=== PATIENT | male | born 1960 | race Caucasian/White ===

== ENCOUNTER 2021-03-26 16:23 | Inpatient (IN) | payer MEDICAID, SELFPAY ==
[~2021-03-26] VITALS: Ht 188 cm; Wt 200.5 kg
[2021-03-26 16:28] VITALS: BP_SYST 142
[2021-03-26 17:01] LABS: BASOPHILS # (AUTO) 0.1 K/uL (0.0-0.2); BASOPHILS % (AUTO) 0.6 % (0.0-2.0); EOSINOPHILS # (AUTO) 0.2 K/uL (0.0-0.4); EOSINOPHILS % (AUTO) 1.6 % (0.0-4.0); HEMATOCRIT 41.2 % (36-54); HEMOGLOBIN 13.6 g/dL (14.0-18.0); LYMPHOCYTES # (AUTO) 1.5 K/uL (1.0-5.5); LYMPHOCYTES % (AUTO) 13.5 % (20.5-51.5); MEAN CORPUSCULAR HEMOGLOBIN 30 pg (27-31); MEAN CORPUSCULAR HGB CONC 33 % (32-36); MEAN CORPUSCULAR VOLUME 89 fL (79.0-98.0); MONOCYTES # (AUTO) 0.7 K/uL (0.0-1.0); MONOCYTES % (AUTO) 6.4 % (1.7-9.3); NEUTROPHILS # (AUTO) 8.6 K/uL (1.8-7.7); NEUTROPHILS % (AUTO) 77.9 % (40.0-70.0); PLATELET COUNT (AUTO) 209 K/uL (130-430); RED BLOOD CELL COUNT(AUTO) 4.63 MIL/uL (4.2-6.2); RED CELL DISTRIBUTION WIDTH 14.9 % (9.0-15.0)
[2021-03-26 17:15] LABS: PROTHROMBIN TIME 10.4 SECS (9.5-12.5)
[2021-03-26 17:27] LABS: CALCIUM 8.8 mg/dL (8.4-11.0); CREATININE 0.73 mg/dL (0.55-1.30); POTASSIUM 4.2 mmol/L (3.5-5.1)
[2021-03-26 17:31] LABS: ALBUMIN 2.9 g/dL (3.4-4.8); TOTAL BILIRUBIN 0.3 mg/dL (0.0-1.0)
[2021-03-26] MEDS ORDERED: CLINDAMYCIN 600 MG in D5W 50 ML IV ONE (18:15)
[2021-03-26] MEDS ORDERED: CLINDAMYCIN 600 mg/50mL D5W 50 ML IV ONE (18:40)
[2021-03-26] MEDS ORDERED: HYDROcodone/ACETAMIN 10-325 MG TAB PO ONE (18:45)
[2021-03-26] MEDS ORDERED: PIRO20CA PO (19:09)
[2021-03-26] MEDS ORDERED: POTA-197 PO (19:09)
[2021-03-26] MEDS ORDERED: MONT10TA22 INH (19:09)
[2021-03-26] MEDS ORDERED: ATRMDI INH (19:09)
[2021-03-26] MEDS ORDERED: ALBU8.5H8 INH (19:09)
[2021-03-26] MEDS ORDERED: AMLO5TAB4 PO (19:09)
[2021-03-26] MEDS ORDERED: FLUT1BLS10 (19:09)
[2021-03-26] MEDS ORDERED: VIS10 PO (19:09)
[2021-03-26] MEDS ORDERED: FURO-149 PO (19:09)
[2021-03-27 01:43] VITALS: BP_SYST 106
[2021-03-27] MEDS ORDERED: FLU VACC QS2021-22(6MOS UP)/PF 0.5 ML/SYR SYRINGE I.M. PRN (02:00)
[2021-03-27 08:16] VITALS: BP_SYST 155
[2021-03-27] MEDS ORDERED: FUROSEMIDE 40 MG/4 ML VIAL IVP ONE (10:00)
[2021-03-27] MEDS ORDERED: metOLazone 5 MG TABLET PO ONE (10:15)
[2021-03-27] MEDS ORDERED: LOSARTAN POTASSIUM 50 MG TABLET (COZAAR) PO ONE (10:15)
[2021-03-27] MEDS ORDERED: HYDROcodone/ACETAMIN 10-325 MG TAB PO PRN (10:30)
[2021-03-27] MEDS ORDERED: METOPROLOL TARTRATE 25 MG TABLET PO ONE (10:30)
[2021-03-27] MEDS ORDERED: POTASSIUM CHLORIDE 20 MEQ TAB.PRT.SR PO ONE (11:15)
[2021-03-27] MEDS ORDERED: ALBUTEROL SULFATE 0.083% 2.5 MG/3 ML VIAL.NEB INH PRN (11:15)
[2021-03-27] MEDS ORDERED: MONTELUKAST 10 MG TABLET PO ONE (11:15)
[2021-03-27] MEDS ORDERED: ALBUTEROL MDI INHALATION 8 GM INH INH PRN (11:15)
[2021-03-27] MEDS ORDERED: LORazepam 2 MG/ML VIAL IVP PRN (11:15)
[2021-03-27] MEDS ORDERED: amLODIPine BESYLATE 5 MG TABLET PO ONE (11:15)
[2021-03-27] MEDS ORDERED: NALOXONE HCL 0.4 MG/ML AMP (NARCAN) IVP PRN ×2 (11:15)
[2021-03-27] MEDS ORDERED: HYDROcodone/ACETAMIN 5-325 MG TAB (NORCO/ VICODIN) PO PRN (11:15)
[2021-03-27] MEDS ORDERED: ACETAMINOPHEN 325 MG TABLET PO PRN ×2 (11:15)
[2021-03-27] MEDS ORDERED: ONDANSETRON HCL 4 MG/2 ML VIAL IVP PRN (11:15)
[2021-03-27] MEDS ORDERED: POLYETHYLENE GLYCOL 3350, 17 GM/ POWD.PACK PO ONE (11:45)
[2021-03-27] MEDS: CLINDAMYCIN 300 MG in D5W 50 ML IV SCH ×2 (12:37→17:20)
[2021-03-27] MEDS: ALBUTEROL SULFATE 0.083% 2.5 MG/3 ML VIAL.NEB INH SCH ×2 (13:00→20:49)
[2021-03-27] MEDS: IPRATROPIUM BROM 0.5 MG/2.5 ML VIAL.NEB (ATROVENT) INH SCH ×2 (13:00→20:49)
[2021-03-27] MEDS: NORMAL SALINE 5 ML DISP.SYRIN IVF SCH ×4 (14:00→21:02)
[2021-03-27] MEDS ORDERED: IPRATROPIUM BROMIDE 17 mCg/ACTUATION, 12.9 GM AER.W.ADAP INH SCH (15:00)
[2021-03-27] MEDS: HYDROcodone/ACETAMIN 10-325 MG TAB PO PRN ×2 (15:48→21:08)
[2021-03-27] MEDS ORDERED: POLYETHYLENE GLYCOL 3350, 17 GM/ POWD.PACK ONE (16:01)
[2021-03-27 16:19] VITALS: BP_SYST 131
[2021-03-27] MEDS: RIVAROXABAN 15 MG TABLET PO SCH (17:26)
[2021-03-27 20:00] VITALS: BP_SYST 151
[2021-03-27] MEDS: BUDESONIDE 0.5 MG/2 ML AMPUL.NEB INH SCH (20:49)
[2021-03-27] MEDS: LOSARTAN POTASSIUM 50 MG TABLET (COZAAR) PO SCH (20:53)
[2021-03-27] MEDS: METOPROLOL TARTRATE 25 MG TABLET PO SCH (20:54)
[2021-03-27] MEDS: FUROSEMIDE 40 MG/4 ML VIAL IVP SCH (20:56)
[2021-03-27] MEDS ORDERED: FLUTICASONE 100 mCg/SALMETEROL 50 mCg DISKUS W.DEV INH SCH (21:00)
[2021-03-27] MEDS ORDERED: FUROSEMIDE 40 MG TABLET PO SCH (21:00)
[2021-03-28 00:05] VITALS: BP_SYST 108
[2021-03-28] MEDS: CLINDAMYCIN 300 MG in D5W 50 ML IV SCH ×4 (00:26→17:59)
[2021-03-28] MEDS: HYDROcodone/ACETAMIN 10-325 MG TAB PO PRN ×3 (03:27→17:59)
[2021-03-28] MEDS: NORMAL SALINE 5 ML DISP.SYRIN IVF SCH ×4 (05:51→22:00)
[2021-03-28] MEDS: ALBUTEROL SULFATE 0.083% 2.5 MG/3 ML VIAL.NEB INH SCH ×3 (07:00→19:32)
[2021-03-28] MEDS: IPRATROPIUM BROM 0.5 MG/2.5 ML VIAL.NEB (ATROVENT) INH SCH ×3 (07:00→19:32)
[2021-03-28] MEDS: BUDESONIDE 0.5 MG/2 ML AMPUL.NEB INH SCH ×2 (07:00→19:33)
[2021-03-28 07:34] LABS: BASOPHILS % (AUTO) 0.4 % (0.0-2.0); EOSINOPHILS # (AUTO) 0.2 K/uL (0.0-0.4); HEMATOCRIT 39.3 % (36-54); HEMOGLOBIN 13.1 g/dL (14.0-18.0); LYMPHOCYTES # (AUTO) 1.7 K/uL (1.0-5.5); LYMPHOCYTES % (AUTO) 15.7 % (20.5-51.5); MEAN CORPUSCULAR HEMOGLOBIN 30 pg (27-31); MEAN CORPUSCULAR HGB CONC 33 % (32-36); MEAN CORPUSCULAR VOLUME 90 fL (79.0-98.0); MONOCYTES % (AUTO) 9.5 % (1.7-9.3); NEUTROPHILS # (AUTO) 7.8 K/uL (1.8-7.7); NEUTROPHILS % (AUTO) 72.4 % (40.0-70.0); PLATELET COUNT (AUTO) 200 K/uL (130-430); RED BLOOD CELL COUNT(AUTO) 4.38 MIL/uL (4.2-6.2); RED CELL DISTRIBUTION WIDTH 15.2 % (9.0-15.0); WHITE BLOOD COUNT (AUTO) 10.7 K/uL (4.8-10.8)
[2021-03-28 07:48] LABS: CALCIUM 8.7 mg/dL (8.4-11.0); CREATININE 1.24 mg/dL (0.55-1.30); PHOSPHORUS 5.1 mg/dL (2.7-4.5); POTASSIUM 3.9 mmol/L (3.5-5.1)
[2021-03-28 08:15] VITALS: BP_SYST 101
[2021-03-28] MEDS ORDERED: amLODIPine BESYLATE 5 MG TABLET PO SCH (09:00)
[2021-03-28] MEDS: FUROSEMIDE 40 MG/4 ML VIAL IVP SCH (09:27)
[2021-03-28] MEDS: MONTELUKAST 10 MG TABLET PO SCH (09:27)
[2021-03-28] MEDS: POLYETHYLENE GLYCOL 3350, 17 GM/ POWD.PACK PO SCH (09:27)
[2021-03-28] MEDS: METOPROLOL TARTRATE 25 MG TABLET PO SCH (09:28)
[2021-03-28] MEDS: POTASSIUM CHLORIDE 20 MEQ TAB.PRT.SR PO SCH (09:29)
[2021-03-28] MEDS: LOSARTAN POTASSIUM 50 MG TABLET (COZAAR) PO SCH ×2 (09:29→21:00)
[2021-03-28 12:12] VITALS: BP_SYST 114
[2021-03-28 15:18] VITALS: BP_SYST 113
[2021-03-28] MEDS: RIVAROXABAN 15 MG TABLET PO SCH (18:00)
[2021-03-28] MEDS ORDERED: METOPROLOL TARTRATE 25 MG TABLET PO SCH (21:00)
[2021-03-28 21:45] VITALS: BP_SYST 106
[2021-03-29] VITALS: BP_SYST 100
[2021-03-29] MEDS: CLINDAMYCIN 300 MG in D5W 50 ML IV SCH ×4 (00:01→18:08)
[2021-03-29] MEDS: IPRATROPIUM BROM 0.5 MG/2.5 ML VIAL.NEB (ATROVENT) INH SCH ×3 (01:00→20:19)
[2021-03-29] MEDS: ALBUTEROL SULFATE 0.083% 2.5 MG/3 ML VIAL.NEB INH SCH ×3 (01:00→20:19)
[2021-03-29] MEDS ORDERED: cefTRIAXone 1 GM VIAL ONE (01:24)
[2021-03-29] MEDS: NORMAL SALINE 5 ML DISP.SYRIN IVF SCH ×6 (05:39→22:00)
[2021-03-29] MEDS: BUDESONIDE 0.5 MG/2 ML AMPUL.NEB INH SCH ×2 (07:00→20:19)
[2021-03-29 07:50] LABS: BASOPHILS # (AUTO) 0.1 K/uL (0.0-0.2); BASOPHILS % (AUTO) 0.7 % (0.0-2.0); EOSINOPHILS # (AUTO) 0.2 K/uL (0.0-0.4); EOSINOPHILS % (AUTO) 2.4 % (0.0-4.0); HEMATOCRIT 38.3 % (36-54); HEMOGLOBIN 12.8 g/dL (14.0-18.0); LYMPHOCYTES # (AUTO) 1.6 K/uL (1.0-5.5); LYMPHOCYTES % (AUTO) 17.2 % (20.5-51.5); MEAN CORPUSCULAR HEMOGLOBIN 30 pg (27-31); MEAN CORPUSCULAR HGB CONC 33 % (32-36); MEAN CORPUSCULAR VOLUME 89 fL (79.0-98.0); MONOCYTES # (AUTO) 0.9 K/uL (0.0-1.0); MONOCYTES % (AUTO) 9.6 % (1.7-9.3); NEUTROPHILS # (AUTO) 6.5 K/uL (1.8-7.7); NEUTROPHILS % (AUTO) 70.1 % (40.0-70.0); PLATELET COUNT (AUTO) 198 K/uL (130-430); RED BLOOD CELL COUNT(AUTO) 4.32 MIL/uL (4.2-6.2); RED CELL DISTRIBUTION WIDTH 15.3 % (9.0-15.0); WHITE BLOOD COUNT (AUTO) 9.3 K/uL (4.8-10.8)
[2021-03-29 08:06] LABS: ALBUMIN 2.7 g/dL (3.4-4.8); C-REACTIVE PROTEIN QUANT 7.5 mg/dL (0-0.5); CREATININE 1.01 mg/dL (0.55-1.30); PHOSPHORUS 4.7 mg/dL (2.7-4.5); POTASSIUM 3.8 mmol/L (3.5-5.1); TOTAL BILIRUBIN 0.3 mg/dL (0.0-1.0)
[2021-03-29 08:20] VITALS: BP_SYST 102
[2021-03-29] MEDS ORDERED: FUROSEMIDE 40 MG/4 ML VIAL IVP SCH (09:00)
[2021-03-29] MEDS: POTASSIUM CHLORIDE 20 MEQ TAB.PRT.SR PO SCH (09:38)
[2021-03-29] MEDS: MONTELUKAST 10 MG TABLET PO SCH (09:38)
[2021-03-29] MEDS: LOSARTAN POTASSIUM 25 MG TABLET PO SCH ×2 (09:38→20:35)
[2021-03-29] MEDS: HYDROcodone/ACETAMIN 10-325 MG TAB PO PRN ×2 (09:39→20:34)
[2021-03-29] MEDS: POLYETHYLENE GLYCOL 3350, 17 GM/ POWD.PACK PO SCH (09:39)
[2021-03-29] MEDS: NACL 0.9% 500 ML IV SCH ×3 (10:43→19:45)
[2021-03-29 11:43] LABS: ERYTHROCYTE SEDIMENTATION RATE 62 MM/HR (0-15)
[2021-03-29 12:20] VITALS: BP_SYST 134
[2021-03-29 16:00] VITALS: BP_SYST 117
[2021-03-29] MEDS: RIVAROXABAN 15 MG TABLET PO SCH (17:56)
[2021-03-29 20:00] VITALS: BP_SYST 119
[2021-03-29] MEDS: METOPROLOL TARTRATE 25 MG TABLET PO SCH (20:35)
[2021-03-30] MEDS: CLINDAMYCIN 300 MG in D5W 50 ML IV SCH ×4 (00:08→18:26)
[2021-03-30 00:28] VITALS: BP_SYST 137
[2021-03-30] MEDS: NACL 0.9% 500 ML IV SCH ×3 (00:45→09:15)
[2021-03-30] MEDS ORDERED: MORPHINE 2 MG/ML INJ. SYRINGE IVP ONE (00:45)
[2021-03-30] MEDS ORDERED: NALOXONE HCL 0.4 MG/ML AMP (NARCAN) IVP PRN (00:45)
[2021-03-30] MEDS: IPRATROPIUM BROM 0.5 MG/2.5 ML VIAL.NEB (ATROVENT) INH SCH ×4 (01:00→20:55)
[2021-03-30] MEDS: ALBUTEROL SULFATE 0.083% 2.5 MG/3 ML VIAL.NEB INH SCH ×4 (01:00→20:55)
[2021-03-30] MEDS: NORMAL SALINE 5 ML DISP.SYRIN IVF SCH ×3 (05:35→21:21)
[2021-03-30 07:10] LABS: BASOPHILS % (AUTO) 0.4 % (0.0-2.0); EOSINOPHILS # (AUTO) 0.2 K/uL (0.0-0.4); EOSINOPHILS % (AUTO) 2.4 % (0.0-4.0); HEMATOCRIT 40.5 % (36-54); HEMOGLOBIN 13.5 g/dL (14.0-18.0); LYMPHOCYTES # (AUTO) 1.6 K/uL (1.0-5.5); LYMPHOCYTES % (AUTO) 18.6 % (20.5-51.5); MEAN CORPUSCULAR HEMOGLOBIN 30 pg (27-31); MEAN CORPUSCULAR HGB CONC 33 % (32-36); MEAN CORPUSCULAR VOLUME 89 fL (79.0-98.0); MONOCYTES % (AUTO) 11.7 % (1.7-9.3); NEUTROPHILS # (AUTO) 5.8 K/uL (1.8-7.7); NEUTROPHILS % (AUTO) 66.9 % (40.0-70.0); PLATELET COUNT (AUTO) 196 K/uL (130-430); RED BLOOD CELL COUNT(AUTO) 4.57 MIL/uL (4.2-6.2); RED CELL DISTRIBUTION WIDTH 14.7 % (9.0-15.0); WHITE BLOOD COUNT (AUTO) 8.6 K/uL (4.8-10.8)
[2021-03-30 07:18] LABS: C-REACTIVE PROTEIN QUANT 7.7 mg/dL (0-0.5); CALCIUM 8.5 mg/dL (8.4-11.0); CREATININE 0.88 mg/dL (0.55-1.30); POTASSIUM 3.3 mmol/L (3.5-5.1)
[2021-03-30] MEDS: HYDROcodone/ACETAMIN 10-325 MG TAB PO PRN ×3 (07:55→22:33)
[2021-03-30 08:01] VITALS: BP_SYST 103
[2021-03-30] MEDS: BUDESONIDE 0.5 MG/2 ML AMPUL.NEB INH SCH ×2 (08:39→20:56)
[2021-03-30] MEDS: LOSARTAN POTASSIUM 25 MG TABLET PO SCH ×2 (09:12→21:19)
[2021-03-30] MEDS: MONTELUKAST 10 MG TABLET PO SCH (09:12)
[2021-03-30] MEDS: POTASSIUM CHLORIDE 20 MEQ TAB.PRT.SR PO SCH (09:13)
[2021-03-30] MEDS: METOPROLOL TARTRATE 25 MG TABLET PO SCH ×2 (09:13→21:19)
[2021-03-30] MEDS: POLYETHYLENE GLYCOL 3350, 17 GM/ POWD.PACK PO SCH (09:14)
[2021-03-30] MEDS ORDERED: POTASSIUM CHLORIDE 20 MEQ TAB.PRT.SR PO ONE (09:45)
[2021-03-30] MEDS ORDERED: FUROSEMIDE 40 MG/4 ML VIAL IVP ONE (09:45)
[2021-03-30] MEDS ORDERED: PSYLLIUM HUSK 1 PKT PACKET PO ONE (10:30)
[2021-03-30 11:40] LABS: ERYTHROCYTE SEDIMENTATION RATE 67 MM/HR (0-15)
[2021-03-30 12:00] VITALS: BP_SYST 122
[2021-03-30] MEDS ORDERED: AMMONIUM LACTATE 226 GM LOTION TP ONE (14:45)
[2021-03-30 16:20] VITALS: BP_SYST 131
[2021-03-30] MEDS: RIVAROXABAN 15 MG TABLET PO SCH (18:26)
[2021-03-30 20:00] VITALS: BP_SYST 110
[2021-03-30] MEDS: PSYLLIUM HUSK 1 PKT PACKET PO SCH (21:20)
[2021-03-31] MEDS: CLINDAMYCIN 300 MG in D5W 50 ML IV SCH ×4 (00:26→17:35)
[2021-03-31] MEDS: HYDROcodone/ACETAMIN 10-325 MG TAB PO PRN ×4 (00:27→17:30)
[2021-03-31 00:37] VITALS: BP_SYST 113
[2021-03-31] MEDS: ALBUTEROL SULFATE 0.083% 2.5 MG/3 ML VIAL.NEB INH SCH ×3 (01:00→13:00)
[2021-03-31] MEDS: IPRATROPIUM BROM 0.5 MG/2.5 ML VIAL.NEB (ATROVENT) INH SCH ×3 (01:00→13:00)
[2021-03-31] MEDS: NORMAL SALINE 5 ML DISP.SYRIN IVF SCH ×3 (06:10→22:56)
[2021-03-31 06:52] LABS: ALBUMIN 2.9 g/dL (3.4-4.8); BASOPHILS % (AUTO) 0.4 % (0.0-2.0); C-REACTIVE PROTEIN QUANT 6.8 mg/dL (0-0.5); CALCIUM 8.4 mg/dL (8.4-11.0); CREATININE 0.78 mg/dL (0.55-1.30); EOSINOPHILS # (AUTO) 0.2 K/uL (0.0-0.4); EOSINOPHILS % (AUTO) 2.4 % (0.0-4.0); HEMATOCRIT 38.7 % (36-54); LYMPHOCYTES # (AUTO) 1.7 K/uL (1.0-5.5); LYMPHOCYTES % (AUTO) 18.3 % (20.5-51.5); MEAN CORPUSCULAR HEMOGLOBIN 30 pg (27-31); MEAN CORPUSCULAR HGB CONC 34 % (32-36); MEAN CORPUSCULAR VOLUME 89 fL (79.0-98.0); NEUTROPHILS # (AUTO) 6.2 K/uL (1.8-7.7); NEUTROPHILS % (AUTO) 67.9 % (40.0-70.0); PLATELET COUNT (AUTO) 195 K/uL (130-430); POTASSIUM 3.6 mmol/L (3.5-5.1); RED BLOOD CELL COUNT(AUTO) 4.35 MIL/uL (4.2-6.2); RED CELL DISTRIBUTION WIDTH 14.7 % (9.0-15.0); TOTAL BILIRUBIN 0.2 mg/dL (0.0-1.0); WHITE BLOOD COUNT (AUTO) 9.1 K/uL (4.8-10.8)
[2021-03-31] MEDS: BUDESONIDE 0.5 MG/2 ML AMPUL.NEB INH SCH (07:00)
[2021-03-31 07:43] VITALS: BP_SYST 123
[2021-03-31 08:31] LABS: ERYTHROCYTE SEDIMENTATION RATE 66 MM/HR (0-15)
[2021-03-31] MEDS: MONTELUKAST 10 MG TABLET PO SCH (08:42)
[2021-03-31] MEDS: POTASSIUM CHLORIDE 20 MEQ TAB.PRT.SR PO SCH (08:42)
[2021-03-31] MEDS: POLYETHYLENE GLYCOL 3350, 17 GM/ POWD.PACK PO SCH (08:43)
[2021-03-31] MEDS: METOPROLOL TARTRATE 25 MG TABLET PO SCH ×2 (08:43→21:00)
[2021-03-31] MEDS: LOSARTAN POTASSIUM 25 MG TABLET PO SCH ×2 (08:43→21:00)
[2021-03-31] MEDS: PSYLLIUM HUSK 1 PKT PACKET PO SCH ×2 (08:50→22:51)
[2021-03-31] MEDS ORDERED: FUROSEMIDE 40 MG/4 ML VIAL IVP SCH (09:00)
[2021-03-31] MEDS ORDERED: FURO-149 PO (11:33)
[2021-03-31] MEDS ORDERED: LOSA25TA3 PO (11:33)
[2021-03-31] MEDS ORDERED: LEVO500T90 PO (11:33)
[2021-03-31] MEDS ORDERED: METO25TA6 PO (11:33)
[2021-03-31] MEDS ORDERED: RIVA15TA PO (11:33)
[2021-03-31] MEDS ORDERED: CLIN-142 PO (11:33)
[2021-03-31] MEDS ORDERED: Ammonium Lactate TP (11:33)
[2021-03-31] MEDS ORDERED: BALSAM PERU/CASTOR OIL 56.7 GM OINT...G. TP ONE (12:30)
[2021-03-31 12:45] VITALS: BP_SYST 100
[2021-03-31] MEDS: AMMONIUM LACTATE 226 GM LOTION TP SCH (12:54)
[2021-03-31 16:00] VITALS: BP_SYST 117
[2021-03-31] MEDS: RIVAROXABAN 15 MG TABLET PO SCH (17:38)
[2021-03-31 20:00] VITALS: BP_SYST 102
[2021-03-31] MEDS: FUROSEMIDE 40 MG TABLET PO SCH (22:52)
[2021-04-01] VITALS: BP_SYST 108
[2021-04-01] MEDS: CLINDAMYCIN 300 MG in D5W 50 ML IV SCH ×4 (01:05→18:00)
[2021-04-01] MEDS: HYDROcodone/ACETAMIN 10-325 MG TAB PO PRN ×3 (03:47→12:27)
[2021-04-01] MEDS: NORMAL SALINE 5 ML DISP.SYRIN IVF SCH ×2 (06:41→14:00)
[2021-04-01 07:23] LABS: BASOPHILS % (AUTO) 0.5 % (0.0-2.0); EOSINOPHILS # (AUTO) 0.2 K/uL (0.0-0.4); EOSINOPHILS % (AUTO) 2.1 % (0.0-4.0); HEMATOCRIT 37.1 % (36-54); HEMOGLOBIN 12.6 g/dL (14.0-18.0); LYMPHOCYTES # (AUTO) 1.6 K/uL (1.0-5.5); LYMPHOCYTES % (AUTO) 16.9 % (20.5-51.5); MEAN CORPUSCULAR HEMOGLOBIN 30 pg (27-31); MEAN CORPUSCULAR HGB CONC 34 % (32-36); MEAN CORPUSCULAR VOLUME 88 fL (79.0-98.0); MONOCYTES % (AUTO) 10.4 % (1.7-9.3); NEUTROPHILS # (AUTO) 6.5 K/uL (1.8-7.7); NEUTROPHILS % (AUTO) 70.1 % (40.0-70.0); PLATELET COUNT (AUTO) 195 K/uL (130-430); RED BLOOD CELL COUNT(AUTO) 4.22 MIL/uL (4.2-6.2); RED CELL DISTRIBUTION WIDTH 14.8 % (9.0-15.0); WHITE BLOOD COUNT (AUTO) 9.2 K/uL (4.8-10.8)
[2021-04-01 07:45] LABS: CALCIUM 8.7 mg/dL (8.4-11.0); CREATININE 0.75 mg/dL (0.55-1.30); POTASSIUM 3.8 mmol/L (3.5-5.1)
[2021-04-01 08:00] VITALS: BP_SYST 126
[2021-04-01 08:07] LABS: C-REACTIVE PROTEIN QUANT 7.4 mg/dL (0-0.5)
[2021-04-01] MEDS: ALBUTEROL SULFATE 0.083% 2.5 MG/3 ML VIAL.NEB INH SCH ×2 (08:13→13:00)
[2021-04-01] MEDS: IPRATROPIUM BROM 0.5 MG/2.5 ML VIAL.NEB (ATROVENT) INH SCH ×2 (08:14→13:00)
[2021-04-01] MEDS: MONTELUKAST 10 MG TABLET PO SCH (08:30)
[2021-04-01] MEDS: POTASSIUM CHLORIDE 20 MEQ TAB.PRT.SR PO SCH (08:30)
[2021-04-01] MEDS: METOPROLOL TARTRATE 25 MG TABLET PO SCH (08:30)
[2021-04-01] MEDS: LOSARTAN POTASSIUM 25 MG TABLET PO SCH (08:30)
[2021-04-01] MEDS: POLYETHYLENE GLYCOL 3350, 17 GM/ POWD.PACK PO SCH (08:30)
[2021-04-01] MEDS: FUROSEMIDE 40 MG TABLET PO SCH (08:31)
[2021-04-01] MEDS: AMMONIUM LACTATE 226 GM LOTION TP SCH (08:35)
[2021-04-01] MEDS: BUDESONIDE 0.5 MG/2 ML AMPUL.NEB INH SCH (08:37)
[2021-04-01] MEDS ORDERED: BALSAM PERU/CASTOR OIL 56.7 GM OINT...G. TP SCH (09:00)
[2021-04-01] MEDS: PSYLLIUM HUSK 1 PKT PACKET PO SCH (09:57)
[2021-04-01 11:14] VITALS: BP_SYST 126
[2021-04-01 12:13] VITALS: BP_SYST 120
[2021-04-01 12:29] LABS: ERYTHROCYTE SEDIMENTATION RATE 76 MM/HR (0-15)
[2021-04-01 16:40] VITALS: BP_SYST 123
[2021-04-01] MEDS: RIVAROXABAN 15 MG TABLET PO SCH (18:12)
== END 2021-04-01 18:30 | disposition home health service (06) | DRG 720 ==
LOC: SED 16:23 → SMU 19:37 → STU 03-27 10:23 → SMU 03-31 10:48
PROVIDERS: ADMIT Internal Medicine Cardiovascular Disease; ATTEND Preventive Medicine Preventive Medicine/Occupational Environmental Medicine
DX: A41.9 Sepsis, unspecified organism (principal); I50.23 Acute on chronic systolic (congestive) heart failure; E66.2 Morbid (severe) obesity with alveolar hypoventilation; E83.39 Other disorders of phosphorus metabolism; I11.0 Hypertensive heart disease with heart failure; I50.9 Heart failure, unspecified; E83.51 Hypocalcemia; L03.115 Cellulitis of right lower limb; E87.1 Hypo-osmolality and hyponatremia; E88.09 Other disorders of plasma-protein metabolism, not elsewhere classified; L03.116 Cellulitis of left lower limb; I48.21 Permanent atrial fibrillation; L30.8 Other specified dermatitis; I87.2 Venous insufficiency (chronic) (peripheral); E87.6 Hypokalemia; Z20.822 Contact with and (suspected) exposure to COVID-19; I25.10 Atherosclerotic heart disease of native coronary artery without angina pectoris; L85.3 Xerosis cutis; J45.909 Unspecified asthma, uncomplicated; I89.0 Lymphedema, not elsewhere classified; Z68.43 Body mass index [BMI] 50.0-59.9, adult; Z79.01 Long term (current) use of anticoagulants
CPT/HCPCS: 36415; 71045; 80048; 80053; 83605; 83735; 83880; 84100; 85025; 85610-TC; 85651-TC; 85730-TC; 86140; 87040-TC; 93306; 93923; 94640; 94760; 96365; 97116-GP; 99285; G0378; J0696; J1940; J2270; J3490; J7060; J7613; J7626

== ENCOUNTER 2021-11-03 18:09 | Inpatient (IN) | payer MEDICAID ==
[~2021-11-03] VITALS: Ht 188 cm; Wt 203.9 kg
[~2021-11-03 18:09] MED LIST: ALBU8.5H8 INH; AMLO5TAB4 PO; ATRMDI INH; Ammonium Lactate TP; CLIN-142 PO; FLUT1BLS10; FURO-149 PO; LEVO-62 PO; LOSA25TA3 PO; METO25TA6 PO; MONT10TA22 INH; PIRO20CA PO; POTA-197 PO; RIVA15TA PO; VIS10 PO
[2021-11-03 18:10] VITALS: BP_SYST 101
[2021-11-03 20:27] LABS: BASOPHILS # (AUTO) 0.1 K/uL (0.0-0.2); BASOPHILS % (AUTO) 0.6 % (0.0-2.0); EOSINOPHILS # (AUTO) 0.2 K/uL (0.0-0.4); EOSINOPHILS % (AUTO) 1.7 % (0.0-4.0); HEMATOCRIT 41.5 % (36-54); LYMPHOCYTES # (AUTO) 1.8 K/uL (1.0-5.5); LYMPHOCYTES % (AUTO) 17.1 % (20.5-51.5); MEAN CORPUSCULAR HEMOGLOBIN 29 pg (27-31); MEAN CORPUSCULAR HGB CONC 34 % (32-36); MEAN CORPUSCULAR VOLUME 86 fL (79.0-98.0); MONOCYTES # (AUTO) 0.8 K/uL (0.0-1.0); MONOCYTES % (AUTO) 7.7 % (1.7-9.3); NEUTROPHILS # (AUTO) 7.7 K/uL (1.8-7.7); NEUTROPHILS % (AUTO) 72.9 % (40.0-70.0); PLATELET COUNT (AUTO) 167 K/uL (130-430); RED CELL DISTRIBUTION WIDTH 13.9 % (9.0-15.0); WHITE BLOOD COUNT (AUTO) 10.6 K/uL (4.8-10.8)
[2021-11-03] MEDS ORDERED: VANCOMYCIN HCL 500 MG in NS 100 ML IV ONE (20:30)
[2021-11-03] MEDS ORDERED: VANCOMYCIN HCL 1,000 MG in NS 250 ML IV ONE (20:30)
[2021-11-03] MEDS ORDERED: PIPERACILLIN/TAZO 3.375 GM in NS 50 ML IV ONE (20:30)
[2021-11-03 20:38] LABS: ANION GAP 10 (5-15); CALCIUM 8.9 mg/dL (8.4-11.0); CHLORIDE 101 mmol/L (98-107); CREATININE 1.14 mg/dL (0.55-1.30); GLUCOSE 105 mg/dL (70-99); POTASSIUM 3.4 mmol/L (3.5-5.1); SODIUM SERUM 140 mmol/L (136-145); UREA NITROGEN, BLOOD 22 mg/dL (8-21)
[2021-11-03 20:41] LABS: GFR AFRICAN AMERICAN 84 mL/min (>90)
[2021-11-03 20:47] LABS: ALANINE AMINOTRANSFERASE 44 U/L (12-78); ALBUMIN 3.3 g/dL (3.4-4.8); ASPARTATE AMINOTRANSFERASE 34 U/L (10-37); TOTAL BILIRUBIN 0.6 mg/dL (0.0-1.0)
[2021-11-03] MEDS ORDERED: PIPERACILLIN/TAZOBACTAM 3.375 GM/VIAL (ZOSYN) IV ONE (22:04)
[2021-11-03] MEDS ORDERED: MORPHINE 4 MG INJ. 4 MG/ML VIAL IVP ONE (22:15)
[2021-11-03] MEDS ORDERED: VANCOMYCIN HCL 1000 MG/VIAL IV ONE ×2 (22:26→22:27)
[2021-11-03] MEDS ORDERED: VANCOMYCIN HCL 500 MG/VIAL IV ONE (22:28)
[2021-11-04] VITALS (7 sets, daily range): BP systolic 105–132
[2021-11-04] MEDS ORDERED: PIPERACILLIN/TAZOBACTAM 3.375 GM/VIAL (ZOSYN) IV ONE (01:52)
[2021-11-04] MEDS ORDERED: ASCORBIC ACID 500 MG TABLET PO ONE (13:00)
[2021-11-04] MEDS ORDERED: FOLIC ACID 1 MG TABLET PO ONE (13:00)
[2021-11-04] MEDS ORDERED: MULTIVITS,CA,MINERALS/IRON/FA 1 TABLET PO ONE (13:00)
[2021-11-04] MEDS: CEFEPIME 2 GM in D5W 100 ML IV SCH (15:59)
[2021-11-04] MEDS: VANCOMYCIN HCL 1,500 MG in NS 250 ML IV SCH ×2 (16:41→23:03)
[2021-11-04] MEDS ORDERED: NALOXONE HCL 0.4 MG/ML AMP (NARCAN) IVP PRN ×2 (19:15)
[2021-11-04] MEDS ORDERED: ACETAMINOPHEN 325 MG TABLET PO PRN ×2 (19:15→20:00)
[2021-11-04] MEDS ORDERED: ONDANSETRON HCL 4 MG/2 ML VIAL IVP PRN (19:15)
[2021-11-04] MEDS ORDERED: LORazepam 2 MG/ML VIAL IVP PRN (19:15)
[2021-11-04] MEDS ORDERED: HYDROcodone/ACETAMIN 5-325 MG TAB (NORCO/ VICODIN) PO PRN (19:15)
[2021-11-04] MEDS ORDERED: ALBUTEROL MDI INHALATION 8 GM INH INH PRN (19:15)
[2021-11-04] MEDS: ASCORBIC ACID 500 MG TABLET PO SCH (20:14)
[2021-11-04] MEDS: FUROSEMIDE 40 MG TABLET PO SCH ×2 (20:15→20:19)
[2021-11-04] MEDS: HYDROcodone/ACETAMIN 10-325 MG TAB PO PRN (20:16)
[2021-11-04] MEDS: LOSARTAN POTASSIUM 25 MG TABLET PO SCH (20:17)
[2021-11-04] MEDS ORDERED: FUROSEMIDE 40 MG TABLET PO SCH (21:00)
[2021-11-04] MEDS ORDERED: FLUTICASONE 100 mCg/SALMETEROL 50 mCg DISKUS W.DEV INH SCH (21:00)
[2021-11-04] MEDS ORDERED: IPRATROPIUM BROMIDE 17 mCg/ACTUATION, 12.9 GM AER.W.ADAP INH SCH (21:00)
[2021-11-04] MEDS ORDERED: NORMAL SALINE 5 ML DISP.SYRIN IVF SCH (22:00)
[2021-11-04] MEDS: METOPROLOL TARTRATE 25 MG TABLET PO SCH (23:02)
[2021-11-04] MEDS: NORMAL SALINE 5 ML DISP.SYRIN IVF SCH (23:02)
[2021-11-05] VITALS (7 sets, daily range): BP systolic 98–135
[2021-11-05] MEDS: HYDROcodone/ACETAMIN 10-325 MG TAB PO PRN ×3 (01:30→13:57)
[2021-11-05] MEDS: CEFEPIME 2 GM in D5W 100 ML IV SCH ×2 (01:30→15:09)
[2021-11-05] MEDS: VANCOMYCIN HCL 1,500 MG in NS 250 ML IV SCH ×3 (06:15→22:54)
[2021-11-05] MEDS: ALBUTEROL SULFATE 0.083% 2.5 MG/3 ML VIAL.NEB INH SCH ×3 (06:16→12:19)
[2021-11-05] MEDS: IPRATROPIUM BROM 0.5 MG/2.5 ML VIAL.NEB (ATROVENT) INH SCH ×3 (06:16→12:19)
[2021-11-05] MEDS: NORMAL SALINE 5 ML DISP.SYRIN IVF SCH ×3 (06:16→22:54)
[2021-11-05] MEDS: BUDESONIDE 0.5 MG/2 ML AMPUL.NEB INH SCH ×2 (07:00→19:00)
[2021-11-05 07:19] LABS: BASOPHILS # (AUTO) 0.1 K/uL (0.0-0.2); BASOPHILS % (AUTO) 0.6 % (0.0-2.0); EOSINOPHILS # (AUTO) 0.2 K/uL (0.0-0.4); EOSINOPHILS % (AUTO) 2.6 % (0.0-4.0); HEMATOCRIT 40.4 % (36-54); HEMOGLOBIN 13.6 g/dL (14.0-18.0); LYMPHOCYTES # (AUTO) 1.2 K/uL (1.0-5.5); LYMPHOCYTES % (AUTO) 12.2 % (20.5-51.5); MEAN CORPUSCULAR HEMOGLOBIN 29 pg (27-31); MEAN CORPUSCULAR HGB CONC 34 % (32-36); MEAN CORPUSCULAR VOLUME 87 fL (79.0-98.0); MONOCYTES # (AUTO) 0.6 K/uL (0.0-1.0); MONOCYTES % (AUTO) 5.8 % (1.7-9.3); NEUTROPHILS # (AUTO) 7.6 K/uL (1.8-7.7); NEUTROPHILS % (AUTO) 78.8 % (40.0-70.0); PLATELET COUNT (AUTO) 143 K/uL (130-430); RED BLOOD CELL COUNT(AUTO) 4.66 MIL/uL (4.2-6.2); RED CELL DISTRIBUTION WIDTH 14.1 % (9.0-15.0); WHITE BLOOD COUNT (AUTO) 9.6 K/uL (4.8-10.8)
[2021-11-05 08:17] LABS: C-REACTIVE PROTEIN QUANT 3.5 mg/dL (0-0.5); CALCIUM 8.7 mg/dL (8.4-11.0); CREATININE 0.9 mg/dL (0.55-1.30); PHOSPHORUS 4.4 mg/dL (2.7-4.5); TOTAL BILIRUBIN 0.8 mg/dL (0.0-1.0)
[2021-11-05] MEDS: METOPROLOL TARTRATE 25 MG TABLET PO SCH ×2 (09:00→21:00)
[2021-11-05] MEDS ORDERED: AMMONIUM LACTATE TP SCH (09:00)
[2021-11-05] MEDS: LOSARTAN POTASSIUM 25 MG TABLET PO SCH ×2 (09:00→21:00)
[2021-11-05] MEDS: amLODIPine BESYLATE 5 MG TABLET PO SCH (09:00)
[2021-11-05] MEDS: MONTELUKAST 10 MG TABLET PO SCH (09:10)
[2021-11-05] MEDS: POTASSIUM CHLORIDE 20 MEQ TAB.PRT.SR PO SCH (09:10)
[2021-11-05] MEDS: MULTIVITS,CA,MINERALS/IRON/FA 1 TABLET PO SCH (09:10)
[2021-11-05] MEDS: ASCORBIC ACID 500 MG TABLET PO SCH ×2 (09:10→22:07)
[2021-11-05] MEDS: FOLIC ACID 1 MG TABLET PO SCH (09:11)
[2021-11-05 12:55] LABS: ERYTHROCYTE SEDIMENTATION RATE 21 MM/HR (0-15)
[2021-11-05] MEDS ORDERED: IPRATROPIUM BROM 0.5 MG/2.5 ML VIAL.NEB (ATROVENT) INH SCH (13:00)
[2021-11-05] MEDS ORDERED: traZODone HCL 50 MG TABLET (DESYREL) PO PRN (18:00)
[2021-11-05] MEDS: FUROSEMIDE 40 MG TABLET PO SCH (18:00)
[2021-11-05] MEDS: RIVAROXABAN 15 MG TABLET PO SCH (18:41)
[2021-11-05] MEDS: AMMONIUM LACTATE 226 GM LOTION TP SCH (22:08)
[2021-11-06] MEDS: ALBUTEROL SULFATE 0.083% 2.5 MG/3 ML VIAL.NEB INH SCH ×5 (01:00→21:08)
[2021-11-06] MEDS: IPRATROPIUM BROM 0.5 MG/2.5 ML VIAL.NEB (ATROVENT) INH SCH ×5 (01:02→18:00)
[2021-11-06] MEDS: CEFEPIME 2 GM in D5W 100 ML IV SCH ×2 (01:31→15:49)
[2021-11-06 01:32] VITALS: BP_SYST 126
[2021-11-06] MEDS: HYDROcodone/ACETAMIN 10-325 MG TAB PO PRN ×2 (01:49→08:37)
[2021-11-06] MEDS: FUROSEMIDE 40 MG TABLET PO SCH ×2 (06:00→17:59)
[2021-11-06] MEDS: VANCOMYCIN HCL 1,500 MG in NS 250 ML IV SCH (06:11)
[2021-11-06] MEDS: NORMAL SALINE 5 ML DISP.SYRIN IVF SCH ×3 (06:12→21:52)
[2021-11-06] MEDS: BUDESONIDE 0.5 MG/2 ML AMPUL.NEB INH SCH ×3 (07:00→21:09)
[2021-11-06 08:00] VITALS: BP_SYST 119
[2021-11-06] MEDS: ASCORBIC ACID 500 MG TABLET PO SCH ×2 (08:40→21:50)
[2021-11-06] MEDS: MONTELUKAST 10 MG TABLET PO SCH (08:40)
[2021-11-06] MEDS: MULTIVITS,CA,MINERALS/IRON/FA 1 TABLET PO SCH (08:40)
[2021-11-06] MEDS: POTASSIUM CHLORIDE 20 MEQ TAB.PRT.SR PO SCH (08:40)
[2021-11-06] MEDS: amLODIPine BESYLATE 5 MG TABLET PO SCH (08:42)
[2021-11-06] MEDS: METOPROLOL TARTRATE 25 MG TABLET PO SCH ×2 (08:43→21:51)
[2021-11-06] MEDS: FOLIC ACID 1 MG TABLET PO SCH (08:44)
[2021-11-06] MEDS: LOSARTAN POTASSIUM 25 MG TABLET PO SCH ×2 (08:44→21:51)
[2021-11-06] MEDS: BALSAM PERU/CASTOR OIL 56.7 GM OINT...G. TP SCH (09:11)
[2021-11-06 09:20] LABS: C-REACTIVE PROTEIN QUANT 8.6 mg/dL (0-0.5); CALCIUM 8.9 mg/dL (8.4-11.0); CREATININE 0.88 mg/dL (0.55-1.30)
[2021-11-06 09:33] LABS: BASOPHILS % (AUTO) 0.6 % (0.0-2.0); EOSINOPHILS # (AUTO) 0.2 K/uL (0.0-0.4); EOSINOPHILS % (AUTO) 2.9 % (0.0-4.0); HEMATOCRIT 41.1 % (36-54); LYMPHOCYTES # (AUTO) 1.4 K/uL (1.0-5.5); MEAN CORPUSCULAR HEMOGLOBIN 30 pg (27-31); MEAN CORPUSCULAR HGB CONC 34 % (32-36); MEAN CORPUSCULAR VOLUME 87 fL (79.0-98.0); MONOCYTES # (AUTO) 0.6 K/uL (0.0-1.0); MONOCYTES % (AUTO) 6.8 % (1.7-9.3); NEUTROPHILS # (AUTO) 6.2 K/uL (1.8-7.7); NEUTROPHILS % (AUTO) 72.7 % (40.0-70.0); PLATELET COUNT (AUTO) 143 K/uL (130-430); RED BLOOD CELL COUNT(AUTO) 4.76 MIL/uL (4.2-6.2); RED CELL DISTRIBUTION WIDTH 14.2 % (9.0-15.0); WHITE BLOOD COUNT (AUTO) 8.5 K/uL (4.8-10.8)
[2021-11-06 12:00] VITALS: BP_SYST 125
[2021-11-06] MEDS: EMOLLIENT COMBINATION NO.73 78 GM CREAM..G. TP SCH (13:12)
[2021-11-06 14:17] LABS: ERYTHROCYTE SEDIMENTATION RATE 27 MM/HR (0-15)
[2021-11-06] MEDS: CLOTRIMAZOLE 1% TOPICAL CREAM 15 GM TP SCH (15:51)
[2021-11-06 16:00] VITALS: BP_SYST 129
[2021-11-06] MEDS: RIVAROXABAN 15 MG TABLET PO SCH (18:00)
[2021-11-06 20:00] VITALS: BP_SYST 122
[2021-11-06] MEDS ORDERED: MILK OF MAGNESIA 30 ML UDC PO PRN (21:30)
[2021-11-06] MEDS: AMMONIUM LACTATE 226 GM LOTION TP SCH (21:52)
[2021-11-06] MEDS: VANCOMYCIN HCL 1,250 MG in NS 250 ML IV SCH (23:15)
[2021-11-07] VITALS: BP_SYST 117
[2021-11-07] MEDS: HYDROcodone/ACETAMIN 10-325 MG TAB PO PRN ×2 (00:19→12:07)
[2021-11-07] MEDS: DIPHENHYDRAMINE HCL 25 MG CAPSULE PO PRN ×2 (00:20→20:40)
[2021-11-07] MEDS: ALBUTEROL SULFATE 0.083% 2.5 MG/3 ML VIAL.NEB INH SCH ×3 (01:00→15:12)
[2021-11-07] MEDS: IPRATROPIUM BROM 0.5 MG/2.5 ML VIAL.NEB (ATROVENT) INH SCH ×3 (01:00→15:12)
[2021-11-07] MEDS: CEFEPIME 2 GM in D5W 100 ML IV SCH ×2 (02:11→15:57)
[2021-11-07] MEDS: NORMAL SALINE 5 ML DISP.SYRIN IVF SCH ×4 (05:45→21:24)
[2021-11-07] MEDS: FUROSEMIDE 40 MG TABLET PO SCH ×2 (05:45→16:42)
[2021-11-07 06:35] LABS: BASOPHILS # (AUTO) 0.1 K/uL (0.0-0.2); BASOPHILS % (AUTO) 0.6 % (0.0-2.0); EOSINOPHILS # (AUTO) 0.2 K/uL (0.0-0.4); EOSINOPHILS % (AUTO) 2.3 % (0.0-4.0); HEMATOCRIT 39.6 % (36-54); HEMOGLOBIN 13.4 g/dL (14.0-18.0); LYMPHOCYTES # (AUTO) 1.2 K/uL (1.0-5.5); LYMPHOCYTES % (AUTO) 13.2 % (20.5-51.5); MEAN CORPUSCULAR HEMOGLOBIN 29 pg (27-31); MEAN CORPUSCULAR HGB CONC 34 % (32-36); MEAN CORPUSCULAR VOLUME 87 fL (79.0-98.0); MONOCYTES # (AUTO) 0.7 K/uL (0.0-1.0); MONOCYTES % (AUTO) 7.3 % (1.7-9.3); NEUTROPHILS % (AUTO) 76.6 % (40.0-70.0); PLATELET COUNT (AUTO) 155 K/uL (130-430); RED BLOOD CELL COUNT(AUTO) 4.58 MIL/uL (4.2-6.2); RED CELL DISTRIBUTION WIDTH 14.4 % (9.0-15.0); WHITE BLOOD COUNT (AUTO) 9.2 K/uL (4.8-10.8)
[2021-11-07] MEDS: BUDESONIDE 0.5 MG/2 ML AMPUL.NEB INH SCH (07:00)
[2021-11-07 07:06] LABS: C-REACTIVE PROTEIN QUANT 8.5 mg/dL (0-0.5); CALCIUM 8.8 mg/dL (8.4-11.0); CREATININE 0.93 mg/dL (0.55-1.30); POTASSIUM 4.3 mmol/L (3.5-5.1)
[2021-11-07 08:00] VITALS: BP_SYST 96
[2021-11-07] MEDS: amLODIPine BESYLATE 5 MG TABLET PO SCH (09:00)
[2021-11-07] MEDS: BALSAM PERU/CASTOR OIL 56.7 GM OINT...G. TP SCH (09:00)
[2021-11-07] MEDS: CLOTRIMAZOLE 1% TOPICAL CREAM 15 GM TP SCH (09:00)
[2021-11-07] MEDS: METOPROLOL TARTRATE 25 MG TABLET PO SCH ×2 (09:00→20:40)
[2021-11-07] MEDS: LOSARTAN POTASSIUM 25 MG TABLET PO SCH ×2 (09:00→20:40)
[2021-11-07] MEDS: ASCORBIC ACID 500 MG TABLET PO SCH ×2 (11:49→20:40)
[2021-11-07] MEDS: MONTELUKAST 10 MG TABLET PO SCH (11:49)
[2021-11-07] MEDS: POTASSIUM CHLORIDE 20 MEQ TAB.PRT.SR PO SCH (11:49)
[2021-11-07] MEDS: MULTIVITS,CA,MINERALS/IRON/FA 1 TABLET PO SCH (11:49)
[2021-11-07] MEDS: FOLIC ACID 1 MG TABLET PO SCH (11:50)
[2021-11-07] MEDS: EMOLLIENT COMBINATION NO.73 78 GM CREAM..G. TP SCH (11:51)
[2021-11-07] MEDS: VANCOMYCIN HCL 1,250 MG in NS 250 ML IV SCH ×3 (12:09→23:54)
[2021-11-07 12:40] LABS: ERYTHROCYTE SEDIMENTATION RATE 34 MM/HR (0-15)
[2021-11-07 16:00] VITALS: BP_SYST 120
[2021-11-07] MEDS: RIVAROXABAN 15 MG TABLET PO SCH (18:43)
[2021-11-07 20:34] VITALS: BP_SYST 123
[2021-11-07] MEDS: AMMONIUM LACTATE 226 GM LOTION TP SCH (20:43)
[2021-11-08 00:20] VITALS: BP_SYST 151
[2021-11-08] MEDS: CEFEPIME 2 GM in D5W 100 ML IV SCH (02:41)
[2021-11-08] MEDS: FUROSEMIDE 40 MG TABLET PO SCH (06:00)
[2021-11-08] MEDS: IPRATROPIUM BROM 0.5 MG/2.5 ML VIAL.NEB (ATROVENT) INH SCH ×3 (06:00→13:24)
[2021-11-08] MEDS: NORMAL SALINE 5 ML DISP.SYRIN IVF SCH (06:00)
[2021-11-08] MEDS: ALBUTEROL SULFATE 0.083% 2.5 MG/3 ML VIAL.NEB INH SCH ×3 (06:08→13:25)
[2021-11-08] MEDS: BUDESONIDE 0.5 MG/2 ML AMPUL.NEB INH SCH ×2 (06:10→07:00)
[2021-11-08 08:00] VITALS: BP_SYST 117
[2021-11-08 09:16] LABS: BASOPHILS # (AUTO) 0.1 K/uL (0.0-0.2); BASOPHILS % (AUTO) 0.6 % (0.0-2.0); EOSINOPHILS # (AUTO) 0.2 K/uL (0.0-0.4); EOSINOPHILS % (AUTO) 2.6 % (0.0-4.0); HEMATOCRIT 40.8 % (36-54); HEMOGLOBIN 13.9 g/dL (14.0-18.0); LYMPHOCYTES # (AUTO) 1.2 K/uL (1.0-5.5); LYMPHOCYTES % (AUTO) 14.5 % (20.5-51.5); MEAN CORPUSCULAR HEMOGLOBIN 29 pg (27-31); MEAN CORPUSCULAR HGB CONC 34 % (32-36); MEAN CORPUSCULAR VOLUME 86 fL (79.0-98.0); MONOCYTES # (AUTO) 0.7 K/uL (0.0-1.0); MONOCYTES % (AUTO) 8.5 % (1.7-9.3); NEUTROPHILS # (AUTO) 5.9 K/uL (1.8-7.7); NEUTROPHILS % (AUTO) 73.8 % (40.0-70.0); PLATELET COUNT (AUTO) 175 K/uL (130-430); RED BLOOD CELL COUNT(AUTO) 4.72 MIL/uL (4.2-6.2); RED CELL DISTRIBUTION WIDTH 13.9 % (9.0-15.0)
[2021-11-08 09:19] LABS: ALBUMIN 3.2 g/dL (3.4-4.8); C-REACTIVE PROTEIN QUANT 6.6 mg/dL (0-0.5); CALCIUM 8.9 mg/dL (8.4-11.0); CREATININE 0.9 mg/dL (0.55-1.30); POTASSIUM 4.1 mmol/L (3.5-5.1); TOTAL BILIRUBIN 0.6 mg/dL (0.0-1.0)
[2021-11-08] MEDS: MULTIVITS,CA,MINERALS/IRON/FA 1 TABLET PO SCH (09:22)
[2021-11-08] MEDS: amLODIPine BESYLATE 5 MG TABLET PO SCH (09:23)
[2021-11-08] MEDS: METOPROLOL TARTRATE 25 MG TABLET PO SCH (09:23)
[2021-11-08] MEDS: MONTELUKAST 10 MG TABLET PO SCH (09:23)
[2021-11-08] MEDS: ASCORBIC ACID 500 MG TABLET PO SCH (09:24)
[2021-11-08] MEDS: FOLIC ACID 1 MG TABLET PO SCH (09:24)
[2021-11-08] MEDS: POTASSIUM CHLORIDE 20 MEQ TAB.PRT.SR PO SCH (09:24)
[2021-11-08] MEDS: LOSARTAN POTASSIUM 25 MG TABLET PO SCH (09:24)
[2021-11-08] MEDS: VANCOMYCIN HCL 1,250 MG in NS 250 ML IV SCH (09:25)
[2021-11-08] MEDS: BALSAM PERU/CASTOR OIL 56.7 GM OINT...G. TP SCH (09:28)
[2021-11-08] MEDS: CLOTRIMAZOLE 1% TOPICAL CREAM 15 GM TP SCH (09:30)
[2021-11-08] MEDS: EMOLLIENT COMBINATION NO.73 78 GM CREAM..G. TP SCH (09:31)
[2021-11-08] MEDS: DIPHENHYDRAMINE HCL 25 MG CAPSULE PO PRN (10:01)
[2021-11-08] MEDS: HYDROcodone/ACETAMIN 10-325 MG TAB PO PRN (10:01)
[2021-11-08 10:15] VITALS: BP_SYST 151
[2021-11-08] MEDS ORDERED: Zinc Sulfate PO (11:36)
[2021-11-08] MEDS ORDERED: CLIN-142 PO (11:36)
[2021-11-08] MEDS ORDERED: TRAZ-250 PO (11:36)
[2021-11-08] MEDS ORDERED: Clotrimazole TP (11:36)
[2021-11-08] MEDS ORDERED: LEVO-62 PO (11:36)
[2021-11-08 12:13] LABS: ERYTHROCYTE SEDIMENTATION RATE 38 MM/HR (0-15)
[2021-11-08 13:58] VITALS: BP_SYST 117
[2021-11-08] MEDS ORDERED: CLINDAMYCIN HCL 150 MG CAPSULE PO SCH (18:00)
[2021-11-08] MEDS ORDERED: levoFLOXacin 500 MG TABLET PO SCH (21:00)
== END 2021-11-08 17:57 | disposition home health service (06) | DRG 383 ==
LOC: SED 18:09 → SMU 11-04 02:35
PROVIDERS: ADMIT Preventive Medicine Preventive Medicine/Occupational Environmental Medicine; ATTEND Preventive Medicine Preventive Medicine/Occupational Environmental Medicine
DX: L03.116 Cellulitis of left lower limb (principal); I11.0 Hypertensive heart disease with heart failure; E83.39 Other disorders of phosphorus metabolism; I50.9 Heart failure, unspecified; E87.1 Hypo-osmolality and hyponatremia; G47.30 Sleep apnea, unspecified; J44.9 Chronic obstructive pulmonary disease, unspecified; L03.115 Cellulitis of right lower limb; R73.9 Hyperglycemia, unspecified; I87.8 Other specified disorders of veins; Z20.822 Contact with and (suspected) exposure to COVID-19; L97.928 Non-pressure chronic ulcer of unspecified part of left lower leg with other specified severity; L97.918 Non-pressure chronic ulcer of unspecified part of right lower leg with other specified severity; E87.6 Hypokalemia; E66.01 Morbid (severe) obesity due to excess calories; E88.09 Other disorders of plasma-protein metabolism, not elsewhere classified; I25.10 Atherosclerotic heart disease of native coronary artery without angina pectoris; Z86.718 Personal history of other venous thrombosis and embolism; Z79.899 Other long term (current) drug therapy; Z68.43 Body mass index [BMI] 50.0-59.9, adult; B96.89 Other specified bacterial agents as the cause of diseases classified elsewhere
CPT/HCPCS: 36415; 71045; 80048; 80053; 80202; 82962; 83605; 83735; 83880; 84100; 84484; 85025; 85379; 85651-TC; 86140; 87040; 87070-TC; 87186-TC; 93005; 94640; 94760; 96365; 96366; 96367; 96375; 97116-GP; 99285; J0692; J2270; J2543; J3370; J7050; J7060; J7613; J7626; Q0163